=== PATIENT | female | born 1935 | race African-American/Black ===

== ENCOUNTER 2018-01-16 14:45 | Inpatient (IN) | payer MEDICARE, OTHER, MEDICAID ==
[~2018-01-16] VITALS: Ht 157.5 cm; Wt 49.9 kg
[2018-01-16] MEDS ORDERED: VANCOMYCIN 1 G PREMIX 200 ML IV SCH ×2 (16:00→23:30)
[2018-01-16 16:52] LABS: CHLORIDE 98 mEq/L (98-107)
[2018-01-16 16:58] LABS: PHOSPHORUS 3.8 mg/dL (2.5-4.9)
[2018-01-16 17:04] LABS: BASOPHILS % 0.4 % (0.0-2.0); EOSINOPHILS % 0.5 % (0.0-5.0); HEMATOCRIT. 36.4 % (36.0-48.0); MEAN CORPUSCULAR HEMOGLOBIN 30.5 pg (28.0-32.0); MEAN CORPUSCULAR VOLUME 92.7 fL (81.0-99.0); MEAN PLATELET VOLUME 7.3 fl (7.4-10.4); NEUTROPHILS % 66.1 % (40.0-76.0); PLATELET 252 x1000/uL (130-400); RED BLOOD CELL COUNT 3.93 mill/uL (4.2-5.4); RED CELL DISTRIBUTION WIDTH 22.9 % (11.6-14.6)
[2018-01-16 17:06] LABS: INR 1.1; PARTIAL THROMBOPLASTIN TIME 27.8 sec (23.4-31.0); PROTHROMBIN TIME 10.6 sec (9.1-11.1)
[2018-01-16] MEDS ORDERED: CLINDAMYCIN 300 MG in DEXTROSE 5% WATER 50 ML IV ONE (17:15)
[2018-01-16] MEDS ORDERED: LEVOFLOXACIN 500MG PREMIX 100 ML IV ONE (17:15)
[2018-01-16 20:23] LABS: PLATELET ESTIMATE NORMAL
[2018-01-16 22:34] VITALS: BP 133/59
[2018-01-16] MEDS ORDERED: ACETAMINOPHEN 325MG TABLET PO PRN (23:30)
[2018-01-16] MEDS ORDERED: GUAIFENESIN 200MG/10ML SUGAR FREE UDC PO PRN (23:30)
[2018-01-16] MEDS ORDERED: IPRATROPIUM/ALBUTEROL 0.5-3(2.5)MG/3ML NEB INH PRN (23:30)
[2018-01-16] MEDS ORDERED: ACETAMINOPHEN 650MG/20.3ML UDC GT PRN (23:30)
[2018-01-16] MEDS ORDERED: HYDROCODONE/ACETAMINOPHEN 5/325MG TABLET PO PRN (23:30)
[2018-01-16] MEDS ORDERED: ONDANSETRON HCL 4MG/2ML INJ IV PRN (23:30)
[2018-01-16] MEDS ORDERED: LEVOFLOXACIN 500MG PREMIX 100 ML IV SCH (23:30)
[2018-01-16] MEDS ORDERED: DOCUSATE SODIUM 100MG CAPSULE PO PRN (23:30)
[2018-01-16] MEDS ORDERED: DEXTROSE 50% WATER 50ML SYRINGE IV PRN (23:30)
[2018-01-17] VITALS: BP 132/50
[2018-01-17 04:00] VITALS: BP 134/55
[2018-01-17] MEDS: SODIUM CHLORIDE 0.9% INJ 3ML FLUSH IVF SCH ×3 (05:39→22:00)
[2018-01-17 06:55] LABS: BASOPHILS % 0.6 % (0.0-2.0); EOSINOPHILS % 1.4 % (0.0-5.0); HEMATOCRIT. 29.7 % (36.0-48.0); HEMOGLOBIN. 9.9 g/dL (12.0-16.0); LYMPHOCYTES % 20.3 % (20.0-50.0); MEAN CORPUSCULAR HEMOGLOBIN 30.7 pg (28.0-32.0); MEAN CORPUSCULAR VOLUME 92.5 fL (81.0-99.0); MEAN PLATELET VOLUME 7.1 fl (7.4-10.4); MONOCYTES % 7.3 % (2.0-8.0); NEUTROPHILS % 70.4 % (40.0-76.0); PLATELET 207 x1000/uL (130-400); RED BLOOD CELL COUNT 3.21 mill/uL (4.2-5.4); RED CELL DISTRIBUTION WIDTH 23.3 % (11.6-14.6)
[2018-01-17 07:05] LABS: CHLORIDE 99 mEq/L (98-107)
[2018-01-17] MEDS: BLOOD SUGAR DIAGNOSTIC STRIP TEST SCH ×4 (07:20→21:00)
[2018-01-17 07:26] LABS: HDL CHOLESTEROL 45 mg/dL (40-59); LDL CHOLESTEROL 42 mg/dL (5-100)
[2018-01-17] MEDS: INSULIN LISPRO 100 UNITS/ML SUBCUT SCH ×4 (07:50→21:00)
[2018-01-17] MEDS: IPRATROPIUM/ALBUTEROL 0.5-3(2.5)MG/3ML NEB INH SCH ×3 (08:50→20:13)
[2018-01-17] MEDS ORDERED: BENAZEPRIL 10MG TABLET PO NR (09:30)
[2018-01-17] MEDS ORDERED: AMLODIPINE 10MG TABLET PO NR (09:30)
[2018-01-17] MEDS ORDERED: HYDRALAZINE 20MG/ML VIAL IV PRN (09:30)
[2018-01-17] MEDS ORDERED: ONDA4SOL2 PO (09:32)
[2018-01-17] MEDS ORDERED: FOLI-43 PO (09:32)
[2018-01-17] MEDS ORDERED: SENN-170 PO (09:32)
[2018-01-17] MEDS ORDERED: LEVO250T58 PO (09:32)
[2018-01-17] MEDS ORDERED: MOM PO (09:32)
[2018-01-17] MEDS ORDERED: EPOE200014 IJ (09:32)
[2018-01-17] MEDS ORDERED: CINA30 PO (09:32)
[2018-01-17] MEDS ORDERED: INSLIS SUBCUT (09:32)
[2018-01-17] MEDS ORDERED: ACET-2178 PO (09:32)
[2018-01-17] MEDS ORDERED: LISI10TA5 PO (09:32)
[2018-01-17] MEDS ORDERED: FOLI1TAB84 PO (09:32)
[2018-01-17] MEDS ORDERED: BISA-81 PO (09:32)
[2018-01-17] MEDS ORDERED: HJ10 IJ (09:32)
[2018-01-17] MEDS ORDERED: INSHUMSS SUBCUT (09:32)
[2018-01-17] MEDS ORDERED: IPRA3AMP9 HHN (09:32)
[2018-01-17] MEDS ORDERED: FAMO20TA8 PO (09:32)
[2018-01-17] MEDS ORDERED: DOCU-138 PO (09:32)
[2018-01-17] MEDS ORDERED: AMLO10TA80 PO (09:32)
[2018-01-17] MEDS ORDERED: NA P230E RC (09:32)
[2018-01-17] MEDS ORDERED: DONE10TA11 PO (09:32)
[2018-01-17] MEDS ORDERED: FURO20TA4 PO (09:32)
[2018-01-17] MEDS ORDERED: ASCO500C15 PO (09:32)
[2018-01-17] MEDS ORDERED: CLON0.2T PO (09:32)
[2018-01-17 12:00] VITALS: BP 136/18
[2018-01-17 16:00] VITALS: BP 139/53
[2018-01-17 20:00] VITALS: BP 101/40
[2018-01-17] MEDS ORDERED: EPOETIN ALFA 10000UNITS/ML VIAL SUBCUT NR (21:00)
[2018-01-18] VITALS: BP 104/46
[2018-01-18] MEDS: IPRATROPIUM/ALBUTEROL 0.5-3(2.5)MG/3ML NEB INH SCH ×4 (01:55→21:04)
[2018-01-18 04:00] VITALS: BP 103/50
[2018-01-18] MEDS: SODIUM CHLORIDE 0.9% INJ 3ML FLUSH IVF SCH ×3 (05:31→23:38)
[2018-01-18] MEDS: BLOOD SUGAR DIAGNOSTIC STRIP TEST SCH ×4 (07:20→21:00)
[2018-01-18 07:24] LABS: BASOPHILS % 0.6 % (0.0-2.0); EOSINOPHILS % 0.7 % (0.0-5.0); HEMATOCRIT. 28.1 % (36.0-48.0); HEMOGLOBIN. 9.5 g/dL (12.0-16.0); LYMPHOCYTES % 18.6 % (20.0-50.0); MEAN CORPUSCULAR HEMOGLOBIN 31.1 pg (28.0-32.0); MEAN CORPUSCULAR VOLUME 92.5 fL (81.0-99.0); MEAN PLATELET VOLUME 7.1 fl (7.4-10.4); MONOCYTES % 7.4 % (2.0-8.0); NEUTROPHILS % 72.7 % (40.0-76.0); PLATELET 185 x1000/uL (130-400); RED BLOOD CELL COUNT 3.04 mill/uL (4.2-5.4)
[2018-01-18 07:51] LABS: PHOSPHORUS 3.7 mg/dL (2.5-4.9)
[2018-01-18 08:00] VITALS: BP 131/48
[2018-01-18] MEDS: AMLODIPINE 10MG TABLET PO SCH (09:04)
[2018-01-18] MEDS: BENAZEPRIL 10MG TABLET PO SCH (09:04)
[2018-01-18] MEDS: INSULIN LISPRO 100 UNITS/ML SUBCUT SCH ×3 (09:22→18:53)
[2018-01-18] MEDS ORDERED: VANCOMYCIN 750 MG PREMIX 150 ML IV NR (10:00)
[2018-01-18 12:00] VITALS: BP 124/44
[2018-01-18] MEDS: LEVOFLOXACIN 500MG PREMIX 100 ML IV SCH (15:02)
[2018-01-18 16:00] VITALS: BP 120/46
[2018-01-18 20:00] VITALS: BP 125/46
[2018-01-18] MEDS ORDERED: LEVOFLOXACIN 250MG PREMIX 50 ML IV SCH (20:00)
[2018-01-19] VITALS: BP 116/41
[2018-01-19] MEDS: INSULIN LISPRO 100 UNITS/ML SUBCUT SCH ×4 (00:55→17:26)
[2018-01-19] MEDS: IPRATROPIUM/ALBUTEROL 0.5-3(2.5)MG/3ML NEB INH SCH ×4 (02:15→20:34)
[2018-01-19 04:00] VITALS: BP 104/38
[2018-01-19] MEDS: BLOOD SUGAR DIAGNOSTIC STRIP TEST SCH ×4 (06:45→21:00)
[2018-01-19] MEDS: SODIUM CHLORIDE 0.9% INJ 3ML FLUSH IVF SCH ×2 (06:45→15:27)
[2018-01-19 06:56] LABS: BASOPHILS % 0.5 % (0.0-2.0); EOSINOPHILS % 1.7 % (0.0-5.0); HEMATOCRIT. 25.8 % (36.0-48.0); HEMOGLOBIN. 8.8 g/dL (12.0-16.0); MEAN CORPUSCULAR HEMOGLOBIN 31.4 pg (28.0-32.0); MEAN CORPUSCULAR VOLUME 92.1 fL (81.0-99.0); MEAN PLATELET VOLUME 7.2 fl (7.4-10.4); MONOCYTES % 8.2 % (2.0-8.0); NEUTROPHILS % 68.6 % (40.0-76.0); PLATELET 183 x1000/uL (130-400); RED CELL DISTRIBUTION WIDTH 22.6 % (11.6-14.6)
[2018-01-19] MEDS: AMLODIPINE 10MG TABLET PO SCH (08:41)
[2018-01-19] MEDS: BENAZEPRIL 10MG TABLET PO SCH (08:41)
[2018-01-19 09:39] LABS: PHOSPHORUS 3.6 mg/dL (2.5-4.9)
[2018-01-19] MEDS ORDERED: LOT10 PO (14:15)
[2018-01-19] MEDS ORDERED: EPOE40007 SUBCUT (14:15)
[2018-01-19] MEDS ORDERED: IPRA3AMP9 INH (14:15)
[2018-01-19] MEDS ORDERED: AMLO10TA80 PO (14:15)
[2018-01-19 16:00] VITALS: BP 119/51
[2018-01-19] MEDS: SODIUM HYPOCHLORITE 0.125% 473ML SOLUTION TOP SCH (18:40)
[2018-01-19 20:00] VITALS: BP 138/45
[2018-01-19] MEDS ORDERED: EPOETIN ALFA 4000UNITS/ML VIAL SUBCUT SCH (21:00)
[2018-01-19] MEDS ORDERED: VANCOMYCIN 500 MG PREMIX 100 ML IV SCH (21:00)
[2018-01-20] VITALS: BP 121/43
[2018-01-20] MEDS: SODIUM CHLORIDE 0.9% INJ 3ML FLUSH IVF SCH ×4 (00:14→21:05)
[2018-01-20] MEDS: INSULIN LISPRO 100 UNITS/ML SUBCUT SCH ×5 (00:26→21:10)
[2018-01-20] MEDS: IPRATROPIUM/ALBUTEROL 0.5-3(2.5)MG/3ML NEB INH SCH ×4 (01:02→20:26)
[2018-01-20 04:00] VITALS: BP 114/40
[2018-01-20] MEDS: BLOOD SUGAR DIAGNOSTIC STRIP TEST SCH ×4 (06:08→21:02)
[2018-01-20 08:00] VITALS: BP 115/31
[2018-01-20] MEDS: BENAZEPRIL 10MG TABLET PO SCH (08:34)
[2018-01-20] MEDS: AMLODIPINE 10MG TABLET PO SCH (08:34)
[2018-01-20 09:11] LABS: BASOPHILS % 0.7 % (0.0-2.0); EOSINOPHILS % 1.1 % (0.0-5.0); HEMATOCRIT. 25.6 % (36.0-48.0); HEMOGLOBIN. 8.4 g/dL (12.0-16.0); LYMPHOCYTES % 24.4 % (20.0-50.0); MEAN CORPUSCULAR HEMOGLOBIN 30.5 pg (28.0-32.0); MEAN CORPUSCULAR VOLUME 92.6 fL (81.0-99.0); MEAN PLATELET VOLUME 7.5 fl (7.4-10.4); MONOCYTES % 6.3 % (2.0-8.0); NEUTROPHILS % 67.5 % (40.0-76.0); PLATELET 159 x1000/uL (130-400); RED BLOOD CELL COUNT 2.77 mill/uL (4.2-5.4); RED CELL DISTRIBUTION WIDTH 22.6 % (11.6-14.6)
[2018-01-20] MEDS: LEVOFLOXACIN 500MG PREMIX 100 ML IV SCH (11:33)
[2018-01-20 11:42] LABS: PHOSPHORUS 3.3 mg/dL (2.5-4.9)
[2018-01-20 12:00] VITALS: BP 107/25
[2018-01-20 16:00] VITALS: BP 128/38
[2018-01-20 20:00] VITALS: BP 99/55
[2018-01-21] VITALS (7 sets, daily range): BP systolic 95–145; BP diastolic 29–81
[2018-01-21] MEDS: IPRATROPIUM/ALBUTEROL 0.5-3(2.5)MG/3ML NEB INH SCH ×4 (02:10→20:40)
[2018-01-21] MEDS: SODIUM CHLORIDE 0.9% INJ 3ML FLUSH IVF SCH ×2 (06:54→15:45)
[2018-01-21] MEDS: BLOOD SUGAR DIAGNOSTIC STRIP TEST SCH ×4 (06:54→21:00)
[2018-01-21 07:07] LABS: BASOPHILS % 0.8 % (0.0-2.0); EOSINOPHILS % 1.1 % (0.0-5.0); HEMATOCRIT. 23.4 % (36.0-48.0); HEMOGLOBIN. 7.9 g/dL (12.0-16.0); LYMPHOCYTES % 18.7 % (20.0-50.0); MEAN CORPUSCULAR VOLUME 91.9 fL (81.0-99.0); MEAN PLATELET VOLUME 7.3 fl (7.4-10.4); MONOCYTES % 7.1 % (2.0-8.0); NEUTROPHILS % 72.3 % (40.0-76.0); PLATELET 171 x1000/uL (130-400); RED BLOOD CELL COUNT 2.55 mill/uL (4.2-5.4)
[2018-01-21] MEDS: INSULIN LISPRO 100 UNITS/ML SUBCUT SCH ×4 (07:43→21:00)
[2018-01-21 07:53] LABS: PHOSPHORUS 3.2 mg/dL (2.5-4.9)
[2018-01-21] MEDS: BENAZEPRIL 10MG TABLET PO SCH (09:00)
[2018-01-21] MEDS: AMLODIPINE 10MG TABLET PO SCH (09:00)
[2018-01-21] MEDS: SODIUM HYPOCHLORITE 0.125% 473ML SOLUTION TOP SCH (13:15)
[2018-01-21] MEDS ORDERED: VANCOMYCIN 500 MG PREMIX 100 ML IV SCH (14:00)
[2018-01-21] MEDS ORDERED: EPOETIN ALFA 10000UNITS/ML VIAL SUBCUT SCH (21:00)
== END 2018-01-21 21:05 | DRG 981 ==
LOC: ER 14:45 → 6EST 18:19 → EDBEDREQTM 18:20 → EDBEDREQ 18:20 → EDBEDREQSVC 18:20 → ENRESERV 19:53
PROVIDERS: ADMIT Family Medicine; ATTEND Family Medicine
PROC: 0KBP0ZZ Excision of Left Hip Muscle, Open Approach (ICD-10-PCS; principal; 2018-01-17)
PROC: 0KBN0ZZ Excision of Right Hip Muscle, Open Approach (ICD-10-PCS; 2018-01-17)
PROC: 5A1D70Z Performance of Urinary Filtration, Intermittent, Less than 6 Hours Per Day (ICD-10-PCS; 2018-01-17)
PROC: 5A1D70Z Performance of Urinary Filtration, Intermittent, Less than 6 Hours Per Day (ICD-10-PCS; 2018-01-18)
PROC: 5A1D70Z Performance of Urinary Filtration, Intermittent, Less than 6 Hours Per Day (ICD-10-PCS; 2018-01-20)
DX: I13.2 Hypertensive heart and chronic kidney disease with heart failure and with stage 5 chronic kidney disease, or end stage renal disease (principal); L89.154 Pressure ulcer of sacral region, stage 4; N18.6 End stage renal disease; E43 Unspecified severe protein-calorie malnutrition; J18.9 Pneumonia, unspecified organism; J96.91 Respiratory failure, unspecified with hypoxia; I50.33 Acute on chronic diastolic (congestive) heart failure; R78.81 Bacteremia; L89.890 Pressure ulcer of other site, unstageable; L89.320 Pressure ulcer of left buttock, unstageable; L89.310 Pressure ulcer of right buttock, unstageable; D63.8 Anemia in other chronic diseases classified elsewhere; E11.22 Type 2 diabetes mellitus with diabetic chronic kidney disease; L89.620 Pressure ulcer of left heel, unstageable; L89.610 Pressure ulcer of right heel, unstageable; E11.42 Type 2 diabetes mellitus with diabetic polyneuropathy; E11.51 Type 2 diabetes mellitus with diabetic peripheral angiopathy without gangrene; F03.90 Unspecified dementia, unspecified severity, without behavioral disturbance, psychotic disturbance, mood disturbance, and anxiety; Z99.2 Dependence on renal dialysis; Z91.19 Patient's noncompliance with other medical treatment and regimen; Z82.49 Family history of ischemic heart disease and other diseases of the circulatory system; Z83.3 Family history of diabetes mellitus; Z87.891 Personal history of nicotine dependence; Z88.0 Allergy status to penicillin; Z68.20 Body mass index [BMI] 20.0-20.9, adult
CPT/HCPCS: 36415; 71045; 80048; 80061; 80202; 82962; 83605; 83735; 84100; 84134; 84145; 84484; 87077; 87186; 93005; 93306; 93923; 93971; 94640; 96365; 96375; 99291; C1893; J0885; J1815; J1956; J3370; J3490; J7040; J7060; J7620